=== PATIENT | female | born 1995 | race Caucasian/White ===

== ENCOUNTER 2023-03-07 18:17 | Emergency (ER) | payer MEDICAID ==
[~2023-03-07] VITALS: Ht 172.7 cm; Wt 108.0 kg
[2023-03-07 18:30] VITALS: BP 126/81; RESP 20; TEMP 99.1; O2SAT 99
[2023-03-07 18:31] VITALS: PULSE 112
[2023-03-07] MEDS ORDERED: TOPUD MT (20:01)
== END 2023-03-07 21:02 | disposition home or self-care (01) ==
LOC: ER 18:17
DX: O99.353 Diseases of the nervous system complicating pregnancy, third trimester (principal); G43.909 Migraine, unspecified, not intractable, without status migrainosus; Z3A.27 27 weeks gestation of pregnancy
CPT/HCPCS: 99282